=== PATIENT | female | born 1940 | race Caucasian/White ===

== ENCOUNTER 2018-12-13 06:26 | Inpatient (IN) ==
[~2018-12-13 06:26] MED LIST: ACETAMINOPHEN 500 MG TABLET PO ONE; CELECOXIB 200 MG CAPSULE PO ONE; Gabapentin 600 MG TABLET PO ONE; LIDOCAINE W/ SODIUM BICARB 0.5 ML SYR ONE; LIDOCAINE W/ SODIUM BICARB 0.5 ML SYR SUBD ONE; Lactated Ringers 1,000 ML PRIMARY IV ONE; Nasal Sanitizer POPSWAB ampule 3 AMP (Nozin) PREOP DOSE ENOS SCH; PANTOPRAZOLE 20 MG TABLET.DR PO ONE; ceFAZolin Inj 2gm (Premix) 2 GM/50 ML BAG IV ONE
[2018-12-13] MEDS ORDERED: Sodium Chloride 0.9% vial 20 ML ONE ×3 (07:00→10:41)
[2018-12-13] MEDS ORDERED: BACITRACIN 50,000 UNIT VIAL IRRIG ONE ×2 (07:01→10:41)
[2018-12-13] MEDS ORDERED: BUPivacaine Liposome/PF (Exparel) Inj 20ml vial INFIL ONE ×2 (07:01→07:53)
[2018-12-13 07:10] LABS: BILIRUBIN,URINE NEGATIVE (NEG); CLARITY,URINE CLEAR (CLEAR); COLOR,URINE YELLOW (Y); GLUCOSE, URINE (UA) NEGATIVE (NEG); OCCULT BLOOD,URINE NEGATIVE (NEG); PROTEIN,URINE NEGATIVE (NEG); UROBILINOGEN,URINE 0.2 EU/dL (0.2)
[2018-12-13 07:15] LABS: URINE SAMPLE TYPE CLEAN CATCH URINE
[2018-12-13] MEDS ORDERED: Ketorolac Inj 30 MG, Morphine Inj (Ortho Cocktail) 4 MG, BUPivacaine Inj 0.25% PF 150 MG SPLASH ONE ×3 (07:28)
[2018-12-13] MEDS ORDERED: fentaNYL Inj 250 MCG/5 ML VIAL ONE (07:43)
[2018-12-13] MEDS ORDERED: SUCCINYLCHOLINE CHLORIDE 20 MG/1 ML - 10 ML ONE (07:45)
[2018-12-13] MEDS ORDERED: ROCURONIUM 10 MG/1 ML - 5 ML VIAL IVP ONE (07:45)
[2018-12-13] MEDS: Lactated Ringers 1,000 ML PRIMARY IV SCH ×2 (07:52→15:04)
[2018-12-13] MEDS ORDERED: MIDAZOLAM HCL 2 MG/2 ML VIAL ONE (07:52)
[2018-12-13] MEDS ORDERED: BUPivacaine 0.5%/Epi Inj 50 ML VIAL ONE (07:54)
[2018-12-13] MEDS ORDERED: TRANEXAMIC ACID 1,000 MG / 10 ML VIAL ONE (10:12)
[2018-12-13] MEDS ORDERED: Acetaminophen 1000mg Inj 1,000 MG/100 ML VIAL IV ONE (11:46)
[2018-12-13] MEDS ORDERED: ONDANSETRON 4 MG/2 ML VIAL IVP PRN ×2 (11:46→14:25)
[2018-12-13] MEDS ORDERED: LIDOCAINE W/ SODIUM BICARB 0.5 ML SYR SUBD PRN (11:46)
[2018-12-13] MEDS: fentaNYL Inj 100 MCG/2 ML VIAL IVP PRN ×2 (11:58→12:30)
[2018-12-13] MEDS ORDERED: METOPROLOL TARTRATE 5 MG/5 ML VIAL ONE (12:14)
[2018-12-13] MEDS ORDERED: METOPROLOL TARTRATE 5 MG/5 ML VIAL IVP ONE (12:17)
[2018-12-13 12:36] LABS: Hematocrit [HCT] 34.2 % (37.0-47.0); Hemoglobin [HGB] 11.1 g/dL (12.0-16.0)
[2018-12-13] MEDS ORDERED: diphenhydrAMINE 25 MG CAPSULE PO PRN (14:25)
[2018-12-13] MEDS ORDERED: CALCIUM CARBONATE 500 MG (TUMS) CHEWABLE TABLET PO PRN (14:25)
[2018-12-13] MEDS ORDERED: Lactated Ringers 1,000 ML PRIMARY IV SCH (14:25)
[2018-12-13] MEDS ORDERED: LIDOCAINE HCL 2 % 10 ML JELLY URO-JECT TOPICAL PRN (14:25)
[2018-12-13] MEDS ORDERED: traMADol 50 MG TABLET PO PRN (14:25)
[2018-12-13] MEDS ORDERED: MAG HYDROX/AL HYDROX/SIMETH 30 ML SUSP PO PRN (14:25)
[2018-12-13] MEDS ORDERED: ACETAMINOPHEN 325 MG TABLET PO PRN (14:25)
[2018-12-13] MEDS: ceFAZolin Inj 2gm (Premix) 2 GM/50 ML BAG IV SCH ×2 (16:10→23:14)
[2018-12-13] MEDS: KETOROLAC 15 MG/1 ML VIAL IVP PRN (20:13)
[2018-12-13] MEDS: DOCUSATE 100 MG CAPSULE PO SCH (20:13)
[2018-12-14 05:22] LABS: Hematocrit [HCT] 25.4 % (37.0-47.0); Hemoglobin [HGB] 8.5 g/dL (12.0-16.0); MEAN CORPUSCULAR HGB CONC 33.5 g/dL (33-37); MEAN CORPUSCULAR VOLUME 94.8 FL (81-99); MEAN PLATELET VOLUME 10.5 FL (7.4-12.2); RED BLOOD COUNT 2.68 10^6/uL (4.20-5.40)
[2018-12-14] MEDS ORDERED: ENOXAPARIN SODIUM 30 MG/0.3 ML SYRINGE SUBCUT SCH (09:00)
[2018-12-14] MEDS: DOCUSATE 100 MG CAPSULE PO SCH (09:12)
[2018-12-14 09:39] VITALS: TEMP 97.3
[2018-12-14] MEDS ORDERED: Lactated Ringers 1,000 ML PRIMARY IV ONE (12:41)
[2018-12-14] MEDS: KETOROLAC 15 MG/1 ML VIAL IVP PRN (13:42)
[2018-12-14 13:45] VITALS: BP 153/71; RESP 16; O2SAT 97
== END 2018-12-14 14:10 | disposition home or self-care (01) | DRG 468 ==
LOC: OPS 06:26 → MED/SURG 14:11
PROVIDERS: ADMIT Orthopaedic Surgery; ATTEND Orthopaedic Surgery